=== PATIENT | male | born 1950 | race Caucasian/White ===

== ENCOUNTER → 2018-01-03 | Outpatient (CLI) | payer OTHER, MEDICARE ==
[~2018-01-03] MED LIST: ACETAMINOPHEN325 M1 PO; BAYER CHEWABLE81 MG PO; CLARITIN10 MG PO; FLAX SEED OIL1000 MG PO; FLEXERIL PO; FLONASE 0.05%50 MCG NASAL; GABAPENTIN PO; HYDROCODON-ACE1 EAC7 PO; IBUPROFEN 200200 M1 PO; KRILL OIL500 MG PO; MIRALAX255 GM PO; MOBIC15 MG PO; MOTION RELIEF25 MG; MUCINEX TA600 MG/TA2 PO; NAPROSYN500 MG PO; PRAVACHOL40 M1 PO; ROBAXIN 750 MG750 M1 PO; TRAMADOL 50 MG50 MG PO
--- NOTE | 2018-01-11 16:41 | PAINCON ---
[address] [address] PAIN MANAGEMENT CONSULTATION Name: CYNDI WHELAN Room: [facility] Magalie#: [id number] Admission: 01/03/18 Attend Phys: Veronika Gregorio MD Discharge: Date of : 52 Report #: [id number] THIS REPORT FOR: //name// CC: Vreonika Castro DATE OF SERVICE: 01/03/2018 FOLLOWUP COMPLAINT: Worsening of pain in the back as well as pain in the abdominal area. FOLLOWUP HISTORY: The patient is a 67-year-old gentleman who has been followed in the Pain Clinic for a number of years. He suffers from cervical radiculopathy, lumbar radiculopathy, SI joint dysfunction. He has returned today indicating that he is having more pain and discomfort in his low back area. He is having some pain that is radiating around the lateral portion of his abdominal area, above his iliac crests. He notes that this pain is quite problematic. He states that he fell on Memorial weekend. He tore his rotator cuff as well as his biceps tendon. He recently had repair of those items. He has just taken off his sling. He rates his pain as a 7-8 at this juncture. He feels that the pain continues to be problematic at this level of 7-8 and would like to undergo treatment for the pain, which is radiating around the right portion of his abdominal wall. He states that this has been problematic for quite a number of years. He has had some surgeries in the past. He had been seen by Dr. Dc Nickerson who is a general surgeon. At the time of surgery, nothing significant was found in that region. He finds that the hydrocodone, Robaxin and Mobic are still helpful. ALLERGIES: PENICILLIN, SULFA. CURRENT MEDICATIONS: Tylenol extra strength, aspirin 81 mg, Flonase 0.05% nasal spray 50 mcg, Mucinex 600 mg, Krill Oil 500 mg, Claritin 10 mg, meloxicam 15 mg, Robaxin 750 mg, hydrocodone 7.5 mg p.r.n. PAIN CLINIC ASSESSMENT: 1. History of osteoarthritis: The patient has some arthritic changes in his low back. He has had surgery. 2. Height is 6 feet 2 inches, weight 236 pounds, BMI is 30. 3. Vital signs: Blood pressure 133/61, heart rate 76, respiratory rate 16, room air saturation 94%, temperature 98.2. 4. Pain intensity: 7-8/10. 5. Fall risk: The patient has not fallen since the fall on with tearing of his rotator cuff and biceps tendon. 6. Blood thinner: The patient is not on a blood thinning medication. 7. History of hypertension: The patient is not being treated for hypertension. 8. Opioids greater than 6 weeks: The patient is [place] [address] PAIN MANAGEMENT CONSULTATION Name: CYNDI WHELAN [id number] Admission: 01/03/18 Attend Phys: Veronika Gregorio MD Discharge: Date of : 52 Report #: [id number] 9. Risk assessment tool. 10. Functional assessment tool. 11. Recreational drug use: The patient denies use of recreational drugs. 12. Tobacco: The patient denies use of tobacco. 13. Alcohol: The patient denies frequent use of alcoholic beverages. PHYSICAL EXAMINATION: GENERAL: The patient is a well-developed, well-nourished white male. He appears his stated age. He is alert and oriented x 3. Affect is appropriate. Speech is fluent. HEENT: Normocephalic, atraumatic. Extraocular eye muscles intact. Sclerae nonicteric. Mucous membranes are moist. NECK: With good range of motion. LUNGS: Clear to auscultation. HEART: regular rate. ABDOMEN: Nontender. EXTREMITIES: The patient has weakness on the right shoulder, status post rotator cuff/biceps tendon surgery recently. Left arm is 5/5 for the major muscle groups. MUSCULOSKELETAL: Without significant scoliosis, kyphosis, or lordosis. Well-healed scar in the lower portion of his back. He complains of some pain and discomfort, which radiates down into his back. He has some pain in the SI joint area. RADIOLOGY: Recent MRI dated 11/21/2017 reveals, impression: 1. L3-L4 disc space is essentially fused. There is fatty replacement of the L3 and L4 vertebral bodies, similar to the previous study. There is mild reversal of the lumbar curvature at this region. 2. Moderate right L3-L4 neural foraminal narrowing, secondary to disc osteophyte and facet osteophytes. This is similar to previous study. 3. There is an annular tear and a broad-based disc bulge at L4-L5 without a focal central disc herniation. 4. Sukrtwdh-jm-kaehre bilateral neural foraminal narrowing at L4-L5, primarily secondary to facet disease. This is similar to the previous study. 5. Moderate narrowing of the transverse diameter of the spinal cord at L4-L5 secondary to hypertrophic facet arthropathy. This has progressed since the previous study. There is no significant narrowing of the AP diameter. IMPRESSION: 1. Lumbar radicular pain. 2. Hypercholesterolemia. 3. Hypertension. 4. Paroxysmal atrial fibrillation. 5. Spinal stenosis. RECOMMENDATIONS: We discussed treatment options with the patient. [facility] [place] [address] PAIN MANAGEMENT CONSULTATION Name: CYNDI WHELAN Room: [facility].#: [id number] Admission: 01/03/18 Attend Phys: Veronika Gregorio MD Discharge: Date of : 52 Report #: [id number] benefits of an epidural steroid injection were again reviewed. Possible complications of the procedure were discussed. At this juncture, the patient has pain and discomfort, which radiates from the lower portion of his back down into the area of the right groin. We will proceed with an epidural steroid injection at L1 and T12 area. The patient will follow up. He will return at which time he will then undergo an injection. We would like to thank you for letting us participate in his care. We hope he continues to improve. <ELECTRONICALLY SIGNED> By: Veronika Gregorio MD 01/11/18 1641 1335 0102N. Dane Gregorio MD /nt
== END ==
LOC: M.PC 04:47
DX: M54.16 Radiculopathy, lumbar region (principal); M54.12 Radiculopathy, cervical region; I10 Essential (primary) hypertension; E78.00 Pure hypercholesterolemia, unspecified; I48.0 Paroxysmal atrial fibrillation; M48.061 Spinal stenosis, lumbar region without neurogenic claudication

== ENCOUNTER → 2018-01-26 | Outpatient (CLI) | payer OTHER, MEDICARE ==
--- NOTE | 2018-02-27 10:00 | PAINCON ---
[address] [address] PAIN MANAGEMENT CONSULTATION Name: CYNDI WHELAN Room: [facility].Rosalino.#: [id number] Admission: 01/26/18 Attend Phys: Veronika Gregorio MD Discharge: Date of : 52 Report #: [id number] THIS REPORT FOR: //name// CC: Veronika Castro DATE OF SERVICE: 01/26/2018 PRIMARY CARE PHYSICIAN: Juliocesar Castro MD FOLLOWUP COMPLAINT: Here for an epidural injection. FOLLOWUP HISTORY: The patient is a 67-year-old gentleman who has been followed in the Pain Clinic because of chronic pain. He has had lumbar radicular pain in the past. He has had cervical radicular pain. At this juncture, he returns today with pain and describes his pain, which is radiating around his right lateral abdominal area and down into the groin area near the L1 dermatomal distribution. Feels that this pain is the most problematic at this juncture. He feels that if he were to get an injection to help this pain that would be the one that is most problematic at this juncture. He feels that Mobic is helpful. Has continued to use Robaxin p.r.n. Rates his pain as a 7.5 today. He feels that his arm is improving. As you may recall, he fell and tore his biceps tendon around Memorial weekend. Still has pain and discomfort involving the right shoulder with some limited motion. ALLERGIES: PENICILLIN, SULFA. CURRENT MEDICATIONS: Tylenol Extra Strength, aspirin 81 mg, Flonase 0.05% nasal spray, Mucinex 600 mg, Krill oil 500 mg, Claritin 10 mg, meloxicam 15 mg, Robaxin 750 mg, hydrocodone 7.5 mg p.r.n. PAIN CLINIC ASSESSMENT: 1. History of osteoarthritis. The patient has some arthritic changes in his low back. He has had surgery. 2. Height is 6 feet 2 inches, weight 236 pounds, BMI is 30. 3. Vital signs: Blood pressure is 153/81, heart rate 61, respiratory rate 18, room air saturation 99%, temperature 98.3. 4. Pain score 7.5/10. 5. Fall risk. The patient has not fallen in the last week since he saw us. 6. Blood thinner. The patient is not on a blood thinning medication. 7. History of hypertension. The patient is not being treated for hypertension. 8. Opioids greater than 6 weeks. The patient is not on an opioid regimen. 9. Risk assessment tool. 10. Functional assessment tool. 11. Recreational drug use. The patient denies use of recreational drugs. 12. Tobacco: The [place] [address] PAIN MANAGEMENT CONSULTATION Name: CYNDI WHELAN Room: [facility]#: [id number] Admission: 01/26/18 Attend Phys: Veronika Gregorio MD Discharge: Date of : 52 Report #: [id number] 13. Alcohol: The patient denies frequent use of alcoholic beverages. PHYSICAL EXAMINATION: GENERAL: The patient is a well-developed, well-nourished white male, appears his stated age. He is alert and oriented x 3. Speech is fluent. HEENT: Normocephalic, atraumatic. Extraocular eye muscles intact. Sclerae nonicteric. Mucous membranes are moist. NECK: With good range of motion. LUNGS: Clear to auscultation. HEART: Regular. ABDOMEN: Nontender. EXTREMITIES: Upper extremity muscle strength is judged to be 4/5 for the right side. Does have some limitation in his ability to raise his right hand, status post rotator cuff tear. Left arm strength 5/5 for the major muscle groups. MUSCULOSKELETAL: Without significant scoliosis, kyphosis or lordosis. The patient has a well-healed scar in the lower portion of his back. Has pain and discomfort, which radiates from the low back area around into the area of his right groin. IMPRESSION: 1. Lumbar radicular pain at L1 distribution. 2. Hypercholesterolemia. 3. Hypertension. 4. Paroxysmal atrial fibrillation. 5. Spinal stenosis. RECOMMENDATIONS: The patient has returned to the Pain Clinic for treatment. Does have pain and discomfort in the T12-L1 area. At this point, we will proceed with an epidural steroid injection to help decrease the pain and discomfort, which he is experiencing. Risks and benefits of the procedure were discussed. They include infection, increased muscle soreness, headache, bleeding, worsening of pain, no improvement in pain and the patient elects to proceed. PROCEDURE NOTE: The patient was taken to the procedure area. He was then helped on to the examination table. His back was sterilely prepped with a Betadine solution. 0.25% bupivacaine was infiltrated at the T12-L1 interspace. This area had been sterilely prepped with Betadine. Anterior, posterior as well as lateral viewing with the fluoroscopy machine was performed. A total of 80 mg Depo-Medrol, 40 mg triamcinolone and 2 mL of 0.25% bupivacaine was injected. The patient tolerated the procedure well. A total of 11 seconds fluoroscopy time was used. The patient will follow up in the future as needed. [place] [address] PAIN MANAGEMENT CONSULTATION Name: CYNDI WHELAN [id number] Admission: 01/26/18 Attend Phys: Veronika Gregorio MD Discharge: Date of : 52 Report #: [id number] We would like to thank you for letting us participate in his care. We hope he continues to improve. <ELECTRONICALLY SIGNED> By: Veronika Gregorio MD 02/27/18 1000 [id number]. Dane Gregorio MD /PMT
== END | disposition home or self-care (01) ==
LOC: M.PC 04:04
DX: M54.16 Radiculopathy, lumbar region (principal); E78.00 Pure hypercholesterolemia, unspecified; I10 Essential (primary) hypertension; I48.0 Paroxysmal atrial fibrillation; M48.061 Spinal stenosis, lumbar region without neurogenic claudication; Z68.30 Body mass index [BMI] 30.0-30.9, adult; M19.90 Unspecified osteoarthritis, unspecified site; Z98.890 Other specified postprocedural states; Z79.899 Other long term (current) drug therapy; Z88.0 Allergy status to penicillin; Z88.2 Allergy status to sulfonamides

== ENCOUNTER → 2019-10-19 | Outpatient (CLI) | payer OTHER | LOC: M.MRI 07:13 | DX: R60.0 Localized edema (principal); M79.645 Pain in left finger(s) ==